=== PATIENT | female | born 1985 | race Caucasian/White ===

== ENCOUNTER 2018-07-29 08:12 | Outpatient (CLI) | payer BC ==
--- NOTE | 2018-07-29 10:56 | MRI ---
MRI OF THE LEFT SHOULDER WITHOUT CONTRAST: Date: 07/29/18 INDICATION: Dysfunction of the left rotator cuff with limited and painful range of motion. COMPARISON: None. FINDINGS: There is fluid in the subacromial/subdeltoid bursa. Rotator cuff is intact. Biceps tendon is located. Biceps anchor complex appears intact. Inferior glenohumeral labral ligamentous complex appears intac t. No paralabral cyst is evident. Glenohumeral articular surface is normal appearing. AC joint appear s normal. There is a Type II acromion. No os acromiale is present. No muscular atrophy is demonstrate d. No enlarged lymph nodes are noted. There is some mild motion artifact that slightly limits imaged detail in the coronal T2 fat sat series. IMPRESSION: 1. Fluid distention of the subacromial/subdeltoid bursa, suspicious for underlying bursitis. 2. Rotator cuff is intact. 3. Biceps anchor complex and inferior glenohumeral labral ligamentous complex appears intact on this nonarthrogram evaluation. 4. AC joint appears within normal limits. 5. No muscular signal abnormality is grossly evident to suggest strain. POS: [facility]
== END 2018-07-29 08:13 | disposition home or self-care (01) ==
LOC: BICMRI 08:12
PROVIDERS: ATTEND Family Medicine
DX: M67.912 Unspecified disorder of synovium and tendon, left shoulder (principal)

== ENCOUNTER 2019-08-27 15:37 | Outpatient (CLI) | payer BC ==
--- NOTE | 2019-08-27 16:25 | RAD ---
Exam: Right hip 2 views: HISTORY: Right hip pain COMPARISON: None FINDINGS: No evidence for fracture, dislocation, or other significant acute osseous abnormality. IMPRESSION: No significant acute process.
--- NOTE | 2019-08-27 16:25 | RAD ---
Exam: Right knee 4 views: HISTORY: Right knee and right hip pain COMPARISON: None FINDINGS: No evidence for fracture, dislocation, or other significant acute osseous abnormality. IMPRESSION: No significant acute process.
== END 2019-08-27 15:38 | disposition home or self-care (01) ==
LOC: SCSRAD 15:37
PROVIDERS: ATTEND Family Medicine
DX: M25.551 Pain in right hip (principal); M25.561 Pain in right knee

== ENCOUNTER 2021-02-01 15:10 | Outpatient (CLI) | payer BC ==
[2021-02-01 16:00] LABS: BHCG - Serum Negative (NEGATIVE); Pregs Control Background? CLEAR/WHITE (CLR/WHITE); Pregs Control Bar Appear? YES (CONTROL BAR)
[2021-02-02 01:56] LABS: SARS-CoV-2 PCR by NAA Not Detected (NotDetected)
== END 2021-02-01 15:11 | disposition home or self-care (01) ==
LOC: LABBT 15:10
PROVIDERS: ATTEND Orthopaedic Surgery
DX: Z01.812 Encounter for preprocedural laboratory examination (principal); S43.432A Superior glenoid labrum lesion of left shoulder, initial encounter; Z20.822 Contact with and (suspected) exposure to COVID-19
CPT/HCPCS: 84703; 87635; U0003; U0005

== ENCOUNTER 2021-02-04 09:52 | Day surgery (SDC) | payer BC ==
[2021-02-03 11:32] VITALS: BMI 29.9
[2021-02-04] MEDS ORDERED: Fentanyl 100 MCG/2 ML VIAL ONE ×2 (11:18→11:26)
[2021-02-04] MEDS ORDERED: Midazolam HCl 2 mg/2 ml Vial ONE ×2 (11:18→11:26)
[2021-02-04] MEDS ORDERED: Lidocaine 2% Jelly 5 ML TUBE ONE (11:26)
[2021-02-04] MEDS ORDERED: Bupivacaine 0.25% HCL 30 ML VIAL ONE (11:42)
[2021-02-04] MEDS ORDERED: Lidocaine 1% w/Epinephrine 1:100K 20 ML VIAL ONE (11:42)
[2021-02-04] MEDS ORDERED: PROPOFOL 200 MG/20 ML VIAL ONE (12:00)
[2021-02-04] MEDS ORDERED: Ropivacaine 2% HCl/PF (20 MG/10 ML VIAL) ONE (12:00)
[2021-02-04] MEDS ORDERED: Lidocaine 1% PF 5 ML VIAL ONE (12:00)
[2021-02-04] MEDS ORDERED: Rocuronium Bromide 10 MG/ML (10ML VIAL) ONE (12:00)
[2021-02-04] MEDS ORDERED: Ropivacaine 0.5% HCl/PF (150 MG/30 ML VIAL) ONE (12:00)
[2021-02-04] MEDS ORDERED: ePHEDrine Sulfate 50 MG/10 ML VIAL ONE (12:00)
[2021-02-04] MEDS ORDERED: Ketorolac Tromethamine 30 MG/ML VIAL IVP PRN (12:30)
[2021-02-04] MEDS ORDERED: Zolpidem Tartrate 5 MG TAB PO PRN (12:30)
[2021-02-04] MEDS ORDERED: Ropivacaine 0.2% 550 ML 550 ML NERVE BLCK SCH (12:30)
[2021-02-04] MEDS ORDERED: HYDROcodone/Acetaminophen 5/325 mg Tablet PO PRN ×2 (12:30)
[2021-02-04] MEDS ORDERED: Promethazine HCl 25 MG/ML VIAL IM PRN (12:30)
[2021-02-04] MEDS ORDERED: Ondansetron PF 4 MG/2 ML Vial IVP PRN (12:30)
[2021-02-04] MEDS ORDERED: traMADol HCl 50 MG TAB PO PRN ×2 (12:30)
[2021-02-04] MEDS ORDERED: Succinylcholine 200 MG/10 ml SYRINGE FS ONE (13:36)
[2021-02-04] MEDS ORDERED: SUGAMMADEX SODIUM 200 MG/2 ML VIAL ONE (13:37)
[2021-02-04] MEDS ORDERED: Ondansetron PF 4 MG/2 ML Vial ONE (14:04)
[2021-02-04] MEDS ORDERED: Promethazine HCl 25 MG/ML VIAL ONE (14:57)
== END 2021-02-04 16:15 | disposition home or self-care (01) ==
LOC: SDC 09:52
PROVIDERS: ATTEND Orthopaedic Surgery
PROC: 0LS40ZZ Reposition Left Upper Arm Tendon, Open Approach (ICD-10-PCS; principal; 2021-02-04)
PROC: 0RBK4ZZ Excision of Left Shoulder Joint, Percutaneous Endoscopic Approach (ICD-10-PCS; principal; 2021-02-04)
DX: S43.432A Superior glenoid labrum lesion of left shoulder, initial encounter (principal); M25.312 Other instability, left shoulder; G89.18 Other acute postprocedural pain; Z79.899 Other long term (current) drug therapy; Z88.8 Allergy status to other drugs, medicaments and biological substances; Z91.018 Allergy to other foods
CPT/HCPCS: A4306; C1713; J0690; J2250; J2405; J2550; J2704; J2795; J3010; S0020

== ENCOUNTER → 2021-02-05 | Day surgery (SDC) | payer BC ==
[~2021-02-05] MED LIST: Dexamethasone 4 mg/ml Vial ONE; Fentanyl 100 MCG/2 ML VIAL ONE; Midazolam HCl 2 mg/2 ml Vial ONE; Ropivacaine 0.5% HCl/PF (150 MG/30 ML VIAL) ONE; Ropivacaine 2% HCl/PF (20 MG/10 ML VIAL) ONE
== END ==
LOC: SDC 14:42
PROVIDERS: ATTEND Anesthesiology
PROC: 3E0T3BZ Introduction of Anesthetic Agent into Peripheral Nerves and Plexi, Percutaneous Approach (ICD-10-PCS; principal; 2021-02-05)
DX: G89.18 Other acute postprocedural pain (principal); M25.512 Pain in left shoulder; J30.1 Allergic rhinitis due to pollen; Z91.018 Allergy to other foods
CPT/HCPCS: J1100; J2250; J2795; J3010